=== PATIENT | female | born 1975 | race Caucasian/White ===

== ENCOUNTER 2016-09-09 12:13 | Emergency (ER) | payer MEDICARE, OTHER ==
[2016-09-09] MEDS ORDERED: ONDANSETRON HCL/PF 4 MG/ 2ML VIAL IVP ONE (12:33)
[2016-09-09] MEDS ORDERED: HYOSCYAMINE SULFATE 0.125 MG TAB.SUBL SL ONE (12:34)
[2016-09-09 12:45] LABS: BASOPHILS % 0.6 (0.0-1.5); EOSINOPHILS % 0.8 % (0.0-6.8); LYMPHOCYTES # 1.4 # k/uL (0.6-4.0); MEAN CORPUSCULAR HEMOGLOBIN 34.3 pg (28.0-34.0); MONOCYTES # 0.2 # k/uL (0.0-0.9); MONOCYTES % 2.9 % (0.0-11.0); NEUTROPHILS # 5.9 # k/uL (1.4-7.7)
[2016-09-09 12:57] LABS: eGFR (African) > 60; eGFR (Non-African) > 60
[2016-09-09] MEDS ORDERED: 0.9 % SODIUM CHLORIDE 1,000 ML IV SCH (13:00)
[2016-09-09] MEDS ORDERED: 0.9 % SODIUM CHLORIDE 1,000 ML IV ONE (13:08)
[2016-09-09] MEDS ORDERED: POTASSIUM CHLORIDE 20 MEQ TABLET.ER PO ONE (13:23)
[2016-09-09 14:26] LABS: APPEARANCE,URINE Clear (CLEAR); COLOR,URINE Yellow (YELLOW); OCCULT BLOOD,URINE Trace-intact (NEGATIVE); PH URINE 6.5 (5.0 - 8.0)
[2016-09-09 14:35] LABS: AMORPHOUS SEDIMENT,UR FEW (NEGATIVE)
[2016-09-09 14:55] VITALS: BP 134/70
--- NOTE | 2016-09-09 15:50 | Diagnostic Imaging Report ---
[facility] [address] [facility] [address] [place], [place]. [address] Report Submission Date: Sep 09, 2016 1:16:41 PM CARD BRUSHER Patient Study Name: GERRY SKINNER Date: Sep 09, 2016 12:56:46 PM CARD BRUSHER Modality Type: CT\SR Gender: F Description: CT ABD & PELVIS W/O CO : 73 Institution: [facility] Physician ANDERSON SANCHEZ - ER CT of the abdomen and pelvis without contrast CLINICAL HISTORY: Abdominal pain for 3 days. Nausea and vomiting. TECHNIQUE: CT of the abdomen and pelvis is performed without oral or intravenous administration of contrast. Sagittal and coronal reconstructions are performed by the technologist. FINDINGS: Visualized lung bases are clear. The liver and spleen demonstrate normal attenuation without focal defect. Gallbladder is normally distended. There is no pancreatic or adrenal abnormality. There are punctate right intrarenal calculi. Kidneys are otherwise unremarkable. There is no evident ureteral or bladder calculus and no hydronephrosis. Vascular calcification is present in the abdominal aorta without evidence of aneurysm. There is no retroperitoneal mass or significant adenopathy. The appendix is visualized and is within normal limits. IMPRESSION: Right intrarenal calculi. Vascular calcification. Negative appendix. Electronically signed on Sep 09, 2016 1:16:41 PM CARD BRUSHER by: Clifford COLEMAN
--- NOTE | 2016-09-10 08:10 | ED Physician Documentation ---
Nausea/Vomiting/Diarrhea - HISTORIAN Historian: patient - HPI Stated Complaint: n/v Chief Complaint: Nausea,Vomiting,Diarrhea Onset: hours (3) Duration: sudden-onset Timing: sudden onset Context: denies: out of country travel, bad food, recent trauma Severity: moderate - Associated Symptoms Vomiting: frequent Diarrhea: mild Abdominal Pain: cramping, aching, RUQ - ROS CONST: none CVS/RESP: chest pain GI/: none EYES/ENT: none NEURO/PSYCH: none - PAST HX Past History: none Surgeries/Procedures: none Immunizations: referred to PCP Allergies/Adverse Reactions: Allergies Allergy/AdvReac Type Severity Reaction Status Date / Time Penicillins Allergy Intermediate trouble Verified 09/09/16 12:32 breathing levofloxacin [From Levaquin] Allergy Verified 09/09/16 12:32 lorazepam [From Ativan] Allergy Verified 09/09/16 12:32 codeine [Codeine] AdvReac Intermediate mental Verified 09/09/16 12:32 confusion sulfamethoxazole AdvReac Intermediate diarrhea Verified 09/09/16 12:32 [From Sulfatrim] trimethoprim [From Sulfatrim] AdvReac Intermediate diarrhea Verified 09/09/16 12 :32 TCA Intollerance Allergy Uncoded 09/09/16 12:32 Home Medications: Ambulatory Orders Medication Instructions Recorded Furosemide [Furosemide] 20 mg PO DAILY 11/04/15 Trazodone HCl [Trazodone HCl] 200 mg PO HS 11/04/15 Zolpidem Tartrate [Zolpidem 10 mg PO HS 11/04/15 Tartrate] - SOCIAL HX Smoking History: cigarettes Alcohol Use: none Drug Use: none - FAMILY HX Family History: none - VITAL SIGNS Vital Signs: Vital Signs Temp Pulse Resp BP Pulse Ox 98.2 F 70 16 134/70 99 09/09/16 12:14 09/09/16 14:52 09/09/16 14:52 09/09/16 14:52 09/09/16 14:52 - REVIEWED ASSESSMENTS Nursing Assessment Reviewed: Yes Vitals Reviewed: Yes Progress - Results/Orders Results/Orders: see orders - Progress Progress: stable and improved with tx in er Critical Care Note - Critical Care Note Total Time (mins): 0 ED Results Lab/Radiology - Lab Results Lab Results: Lab Results 09/09/16 09/09/16 09/09/16 14:20 14:20 12:40 WBC RBC Hgb Hct MCV MCH MCHC RDW Plt Count Neut % (Auto) Lymph % (Auto) [place] % (Auto) Eos % (Auto) Baso % (Auto) Neut # Lymph # [place] # Eos # Baso # Reactive Lymphs % Reactive Lymphs # Sodium 150 mmol/L H mmol/L (136-145) Potassium 3.1 mmol/L L mmol/L (3.5-5.0) Chloride 110 mmol/L mmol/L (98-110) Carbon Dioxide 25 mmol/L mmol/L (20-32) BUN 19 mg/dL mg/dL (10-26) Creatinine 0.7 mg/dL mg/dL (0.4-1.5) Estimated Creat Clear 133 Est GFR ( Amer) > 60 (60 - ) Est GFR (Non-Af Amer) > 60 (60 - ) Glucose 124 mg/dL H mg/dL (70-99) Calcium 10.2 mg/dL mg/dL (8.5-10.5) Total Bilirubin 0.5 mg/dL mg/dL (0.2-1.2) AST 19 U/L U/L (0-41) ALT 18 U/L U/L (0-45) Alkaline Phosphatase 56 U/L U/L (46-116) Total Protein 7.2 g/dL g/dL (6.0-8.5) Albumin 4.7 g/dL g/dL (3.0-5.5) Amylase 39 U/L U/L (20-104) Urine Color Yellow (YELLOW) Urine Appearance Clear (CLEAR) Urine pH 6.5 (5.0 - 8.0) Ur Specific [place] 1.025 (1.010-1.030) Urine Protein 2+ mg/dL H mg/dL (NEGATIVE) Urine Ketones 3+ mg/dL H mg/dL (NEGATIVE) Urine Occult Blood Trace-intact (NEGATIVE) Urine Nitrite Negative (NEGATIVE) Urine Bilirubin 1+ H (NEGATIVE) Urine Urobilinogen 2.0 Eu H Eu (0.2-1.0) Ur Leukocyte Esterase Negative (NEGATIVE) Urine RBC 0-2 (0-2 HPF) Urine WBC 0-2 (0-5 HPF) Ur Squamous Epith Cells Few (NEG-FEW) Amorphous Sediment Few H (NEGATIVE) Urine Mucus Present H (NEGATIVE) Urine Glucose Negative mg/dL mg/dL (NEGATIVE) Urine HCG, Qual Negative (NEGATIVE) 09/09/16 12:40 WBC 7.80 K/ul K/ul (4.00-12.00) RBC 4.41 M/ul M/ul (3.90-5.20) Hgb 15.2 g/dL g/dL (12.0-16.0) Hct 42.7 % % (34.5-46.5) MCV 96.9 fl fl (80.0-100.0) MCH 34.3 pg H pg (28.0-34.0) MCHC 35.4 g/dL g/dL (30.0-36.0) RDW 12.4 % % (11.3-14.3) Plt Count 189 K/mm3 K/mm3 (130-400) Neut % (Auto) 75.7 % % (39.0-79.0) Lymph % (Auto) 18.6 % % (16.0-50.0) [place] % (Auto) 2.9 % % (0.0-11.0) Eos % (Auto) 0.8 % % (0.0-6.8) Baso % (Auto) 0.6 (0.0-1.5) Neut # 5.9 # k/uL # k/uL (1.4-7.7) Lymph # 1.4 # k/uL # k/uL (0.6-4.0) [place] # 0.2 # k/uL # k/uL (0.0-0.9) Eos # 0.1 # k/uL # k/uL (0.0-0.6) Baso # 0.0 # k/uL # k/uL (0.0-0.5) Reactive Lymphs % 1.5 % % (0.0-5.0) Reactive Lymphs # 0.1 # k/uL # k/uL (0.0-0.8) Sodium Potassium Chloride Carbon Dioxide BUN Creatinine Estimated Creat Clear Est GFR ( Amer) Est GFR (Non-Af Amer) Glucose Calcium Total Bilirubin AST ALT Alkaline Phosphatase Total Protein Albumin Amylase Urine Color Urine Appearance Urine pH Ur Specific [place] Urine Protein Urine Ketones Urine Occult Blood Urine Nitrite Urine Bilirubin Urine Urobilinogen Ur Leukocyte Esterase Urine RBC Urine WBC Ur Squamous Epith Cells Amorphous Sediment Urine Mucus Urine Glucose Urine HCG, Qual - Radiology Radiology Impressions: ct abdomen/pelvis neg - Orders Orders: ED Orders Category Date Time Status CT ABD & PELVIS W/O CON Stat Exams 09/09/16 Completed AMYLASE Routine Lab 09/09/16 12:40 Completed CBC/PLATELET/DIFF Routine Lab 09/09/16 12:40 Completed CMP Routine Lab 09/09/16 12:40 Completed HCG [URINE HCG] Routine Lab 09/09/16 14:20 Completed URINALYSIS Routine Lab 09/09/16 14:20 Completed 0.9 % Sodium Chloride [Normal Saline] 1,000 ml Med 09/09/16 13:00 Discontinued IV .Q1H 0.9 % Sodium Chloride [Normal Saline] 1,000 ml Med 09/09/16 13:08 Discontinued IV .STK-MED Hyoscyamine Sulfate [Oscimin Sl] Med 09/09/16 12:34 Discontinued 0.25 mg SL NOW ONE Ondansetron HCl/Pf [Zofran 4 mg/2 ml] Med 09/09/16 12:33 Discontinued 4 mg IVP NOW ONE Potassium Chloride [Klor-Con M20] Med 09/09/16 13:23 Discontinued 40 meq PO NOW ONE Nausea Physical Exam - EXAM General Appearance: moderate distress EENT: eye inspection normal, ENT inspection normal, pharynx normal, no signs of dehydration, JOSELIN, no nystagmus, TM's nml Neck: normal inspection, thyroid normal, supple Respiratory: no resp distress, chest non-tender, breath sounds normal CVS: reg rate & rhythm, heart sounds normal, equal pulses, no murmur, no gallop , PMI nml, no JVD Abdomen: non-tender, no organomegaly. No: guarding, rebound Back: non-tender, painless ROM Skin: warm/dry, normal color Extremities: non-tender, normal range of motion, no evidence of injury, no edema Neuro/Psych: oriented X3, CN's nml as tested, motor nml, sensation nml, mood/ affect nml, cognition normal Discharge Clincal Impression: Gastroenteritis Referrals: Harris Medrano MD [Primary Care Provider] - 2 Days Home Medications: Ambulatory Orders Furosemide [Furosemide] 20 mg PO DAILY 11/04/15 Trazodone HCl [Trazodone HCl] 200 mg PO HS 11/04/15 Zolpidem Tartrate [Zolpidem Tartrate] 10 mg PO HS 11/04/15 Comments: discharged with scripts Condition: Stable Disposition: 01 HOME, SELF-CARE Decision to Admit: NO Decision Time: 14:50
== END 2016-09-09 14:52 | disposition home or self-care (01) ==
LOC: ED 12:13
DX: K52.9 Noninfective gastroenteritis and colitis, unspecified (principal)
CPT/HCPCS: 74176; 80053; 81002; 81025; 82150; 85025; A9270; J2405; J7030; 96361; 96374; 99283

== ENCOUNTER 2016-09-12 12:12 | Outpatient (CLI) | payer MEDICARE, OTHER ==
[2016-09-12 12:27] LABS: BASOPHILS % 0.7 (0.0-1.5); LYMPHOCYTES # 2.4 # k/uL (0.6-4.0); MEAN CORPUSCULAR HEMOGLOBIN 34.1 pg (28.0-34.0); MONOCYTES # 0.5 # k/uL (0.0-0.9); MONOCYTES % 4.2 % (0.0-11.0); NEUTROPHILS # 8.3 # k/uL (1.4-7.7)
[2016-09-12 12:56] LABS: eGFR (African) > 60; eGFR (Non-African) > 60
== END 2016-09-12 12:13 ==
LOC: LAB 12:12
PROVIDERS: ATTEND Family Medicine
DX: R10.13 Epigastric pain (principal)
CPT/HCPCS: 36415; 80053; 82150; 85025

== ENCOUNTER 2018-08-01 23:04 | Emergency (ER) | payer MEDICARE, OTHER ==
[2018-08-01] MEDS ORDERED: EPINEPHrine 0.1 MG/ML DISP.SYRIN IVP ONE (23:12)
--- NOTE | 2018-08-01 23:20 | ED Physician Documentation ---
Cardiopulmonary Resuscitation - HISTORIAN Historian: patient - HPI Chief Complaint: CPR Witnessed Arrest?: No CPR Initiated Prior to MD Arrival?: Yes Further Comments: yes (Per EMS her last known well time was 2029. Discussion with mother states the same. Moms states she went to bed at 2030 and the pt was in the recliner watching TV. After mom was in bed she was up to the restroom approx 2230 and she notes the pt was "slumped over in the chair and she was blue. She was not breathing" She states she called he neighbor and he was less than 5 min and started CPR on the pt. EMS states she was without a pulse or resp on arrival and they did attempt to do CPR with no response or change in condition. 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 SUPERVISOR How Many Doses of Epinephrine?: 3 Vasopressin Given?: No Amiodorone Given?: No Sodium Bicarb Given?: No Lidocaine Given?: No - ROS CONST: none - PAST HX Past History: other (seizures and bipolar ) Allergies/Adverse Reactions: Allergies Allergy/AdvReac Type Severity Reaction Status Date / Time Penicillins Allergy Intermediate trouble Verified 09/09/16 12:32 breathing levofloxacin [From Levaquin] Allergy Verified 09/09/16 12:32 lorazepam [From Ativan] Allergy Verified 09/09/16 12:32 codeine [Codeine] AdvReac Intermediate mental Verified 09/09/16 12:32 confusion sulfamethoxazole AdvReac Intermediate diarrhea Verified 09/09/16 12:32 [From Sulfatrim] trimethoprim [From Sulfatrim] AdvReac Intermediate diarrhea Verified 09/09/16 12:32 TCA Intollerance Allergy Uncoded 09/09/16 12:32 Home Medications: Ambulatory Orders Medication Instructions Recorded Furosemide 20 mg PO DAILY 11/04/15 Lamotrigine [Lamotrigine Er] 100 mg PO BID u2 07/24/17 - SOCIAL HX Smoking History: cigarettes Alcohol Use: other (Unknown) Drug Use: other (Unknown ) - FAMILY HX Family History: Yes - VITAL SIGNS Vital Signs: Vital Signs Temp Pulse Resp BP Pulse Ox 134/70 09/09/16 14:52 - REVIEWED ASSESSMENTS Nursing Assessment Reviewed: Yes Vitals Reviewed: Yes Progress - Progress Progress: 2310: After unknown time down. No response to epi x 4 and no resp or pulse . Pt pronounced DG 2312: discussion with mom - no further concerns or questions. She reports [facility] home is the home she is requesting and she is declining to see pt DG ED Results Lab/Radiology - Orders Orders: ED Orders Category Date Time Status EPINEPHrine [Adrenalin] Med 08/01/18 23:12 Discontinued 0.1 mg IVP .STK-MED ONE Chest Pain Physical Exam - EXAM General Appearance: other (unresponsive ) EENT: other (pupils fixed and dialated ) Neck: nml inspection Respiratory: other (no respirations ) CVS: other (aystole ) Abdomen: other (none ) Skin: cyanosis Neuro: other (unresponsive ) Discharge Clincal Impression: Referrals: Harris Medrano MD [Primary Care Provider] - 2 Days Disposition: 20 Decision to Admit: NO Date of Decison to Admit: 08/01/18 Decision Time: 23:10
== END 2018-08-02 01:11 | disposition expired ==
LOC: ED 23:04
CPT/HCPCS: 99285